=== PATIENT | male | born 1995 | race Two or more races ===

== ENCOUNTER 2022-06-08 13:16 | Emergency (ER) | payer MEDICAID, OTHER ==
[~2022-06-08] VITALS: Ht 175.3 cm; Wt 72.6 kg
[2022-06-08] MEDS ORDERED: KETOROLAC TROMETHAMINE INJ 60 MG/2 ML VIAL IM ONE (14:30)
[2022-06-08] MEDS ORDERED: KETOROLAC TROMETHAMINE INJ 30 MG/ML VIAL ONE (15:05)
[2022-06-09 00:35] VITALS: BP 120/67
== END 2022-06-09 00:50 | disposition short-term general hospital (02) ==
LOC: ER 13:29
DX: S92.322A Displaced fracture of second metatarsal bone, left foot, initial encounter for closed fracture (principal); S92.332A Displaced fracture of third metatarsal bone, left foot, initial encounter for closed fracture; S92.342A Displaced fracture of fourth metatarsal bone, left foot, initial encounter for closed fracture; Z20.822 Contact with and (suspected) exposure to COVID-19; V00.131A Fall from skateboard, initial encounter; Y93.51 Activity, roller skating (inline) and skateboarding; Y92.89 Other specified places as the place of occurrence of the external cause; Y99.8 Other external cause status
CPT/HCPCS: 99285; 29515; 73700; 87426; 96372; 73630; 87081; J1885; C9803

== ENCOUNTER 2023-02-23 12:44 | Emergency (ER) | payer MEDICAID ==
[~2023-02-23] VITALS: Ht 180.3 cm; Wt 77.1 kg
[2023-02-23] MEDS ORDERED: ONDANSETRON HCL/PF 4 MG/2 ML VIAL ONE (13:23)
[2023-02-23] MEDS ORDERED: FAMOTIDINE/PF INJ 20 MG/2 ML VIAL IV ONE ×2 (13:23→13:30)
[2023-02-23] MEDS ORDERED: MAG HYDROX/AL HYDROX/SIMETH 30 ML UDC ONE (13:23)
[2023-02-23] MEDS ORDERED: LIDOCAINE VISCOUS 2% UD 15 ML UDC ONE (13:23)
[2023-02-23] MEDS ORDERED: ONDANSETRON HCL/PF 4 MG/2 ML VIAL IVP ONE (13:30)
[2023-02-23] MEDS ORDERED: IV NS 0.9% 1,000 ML BAG IV ONE (13:30)
[2023-02-23] MEDS ORDERED: MAG HYDROX/AL HYDROX/SIMETH 30 ML UDC PO ONE (13:30)
[2023-02-23] MEDS ORDERED: LIDOCAINE VISCOUS 2% UD 15 ML UDC MM ONE (13:30)
[2023-02-23 13:48] LABS: BASOPHILS % (AUTO) 0.4 % (0.0-2.0); EOSINOPHILS # (AUTO) 0.1 K/uL (0.0-0.7); EOSINOPHILS % (AUTO) 1.3 % (0.0-6.0); HEMATOCRIT 45 % (39-51); HEMOGLOBIN 14.5 g/dL (13.5-17.5); LYMPHOCYTES # (AUTO) 3.1 K/uL (0.8-4.8); LYMPHOCYTES % (AUTO) 33.2 % (20.0-44.0); MEAN CORPUSCULAR HEMOGLOBIN 28 PG (26.0-33.0); MEAN CORPUSCULAR HGB CONC 32 g/dl (31.0-36.0); MEAN CORPUSCULAR VOLUME 86 fL (80-96); MONOCYTES # (AUTO) 0.5 K/uL (0.1-1.30); MONOCYTES % (AUTO) 5.7 % (2.0-12.0); NEUTROPHILS # (AUTO) 5.6 K/uL (1.8-8.9); NEUTROPHILS % (AUTO) 59.4 % (43.0-81.0); PLATELET COUNT (AUTO) 266 K/uL (150-450); RED BLOOD CELL COUNT(AUTO) 5.26 MIL/uL (4.5-6.0); RED CELL DISTRIBUTION WIDTH 15.1 % (11.5-15.0); WHITE BLOOD COUNT (AUTO) 9.4 K/uL (4.3-11.0)
[2023-02-23 13:57] LABS: CALCIUM, SERUM 8.6 mg/dL (8.5-10.1); CREATININE 0.8 mg/dL (0.6-1.3); POTASSIUM 3.9 mmol/L (3.5-5.1)
[2023-02-23 14:05] LABS: ALBUMIN 4.5 g/dL (3.4-5.0); BILIRUBIN,DIRECT 0.1 mg/dL (0.0-0.2); BILIRUBIN,TOTAL 0.4 mg/dL (0.2-1.0); TOTAL PROTEIN, SERUM 7.8 g/dL (6.4-8.2)
[2023-02-23] MEDS ORDERED: PANT40TA2 PO (14:31)
[2023-02-23 14:38] VITALS: BP 128/75; TEMP 98; O2SAT 100
== END 2023-02-23 14:39 | disposition home or self-care (01) ==
LOC: ER 12:44
DX: F10.129 Alcohol abuse with intoxication, unspecified (principal); R11.2 Nausea with vomiting, unspecified; Y90.9 Presence of alcohol in blood, level not specified
CPT/HCPCS: 99284; 96374; 71045; 96361; 96375; 85025; 80048; 83690; 80076; 36415; J3490; J2405; J7030

== ENCOUNTER 2024-05-24 11:36 | Emergency (ER) | payer MEDICAID, OTHER ==
[~2024-05-24] VITALS: Ht 177.8 cm; Wt 72.6 kg
[~2024-05-24 11:36] MED LIST: PANT40TA2 PO
[2024-05-24 12:01] VITALS: BP 129/86; O2SAT 99
[2024-05-24] MEDS ORDERED: ACETAMINOPHEN 325 MG TABLET ONE (12:45)
[2024-05-24] MEDS ORDERED: KETOROLAC TROMETHAMINE INJ 30 MG/ML VIAL ONE (12:45)
[2024-05-24 12:49] VITALS: TEMP 98.5
[2024-05-24] MEDS: ACETAMINOPHEN 325 MG TABLET PO ONE (12:49)
[2024-05-24] MEDS: KETOROLAC TROMETHAMINE INJ 30 MG/ML VIAL IM ONE (12:50)
[2024-05-24] MEDS ORDERED: PENICILLIN G BENZATHINE 2.4 MMU/4 ML ML IM ONE (15:09)
[2024-05-24] MEDS: PENICILLIN G BENZATHINE 2.4 MMU/4 ML ML IM ONE (15:30)
[2024-05-25] MEDS ORDERED: CLIN300C12 PO (20:35)
[2024-05-25] MEDS ORDERED: AMOX-430 PO (20:35)
== END 2024-05-24 15:25 | disposition home or self-care (01) ==
LOC: ER 12:15
DX: J02.9 Acute pharyngitis, unspecified (principal); R05.9 Cough, unspecified; R50.9 Fever, unspecified; Z20.822 Contact with and (suspected) exposure to COVID-19; Z79.899 Other long term (current) drug therapy
CPT/HCPCS: 99284; 87426; 96372 ×2; 87804 ×2; 87070; 87880; J0558; J1885; 86403-TC

== ENCOUNTER 2024-05-25 16:26 | Emergency (ER) | payer OTHER ==
[~2024-05-25] VITALS: Ht 177.8 cm; Wt 73.5 kg
[2024-05-25] MEDS ORDERED: methylPREDNISolone SOD SUCC 125 MG/2ML VIAL ONE (16:47)
[2024-05-25] MEDS ORDERED: dexaMETHasone SOD PHOSPHATE 1 ML ONE (16:47)
[2024-05-25] MEDS ORDERED: IOHEXOL-300 100 ML VIAL IV ONE (16:48)
[2024-05-25] MEDS ORDERED: IV NS 0.9% 250 ML IV ONE (16:48)
[2024-05-25] MEDS: dexaMETHasone SOD PHOSPHATE 10 MG/ML VIAL IV ONE (16:51)
[2024-05-25 16:58] LABS: BASOPHILS # (AUTO) 0.1 K/uL (0.0-0.2); BASOPHILS % (AUTO) 0.2 % (0.0-2.0); HEMATOCRIT 44 % (39-51); HEMOGLOBIN 14.4 g/dL (13.5-17.5); LYMPHOCYTES # (AUTO) 1.7 K/uL (0.8-4.8); LYMPHOCYTES % (AUTO) 7.1 % (20.0-44.0); MEAN CORPUSCULAR HEMOGLOBIN 28 PG (26.0-33.0); MEAN CORPUSCULAR HGB CONC 33 g/dl (31.0-36.0); MEAN CORPUSCULAR VOLUME 86 fL (80-96); MONOCYTES # (AUTO) 1.9 K/uL (0.1-1.30); MONOCYTES % (AUTO) 8.1 % (2.0-12.0); NEUTROPHILS # (AUTO) 20.2 K/uL (1.8-8.9); NEUTROPHILS % (AUTO) 84.6 % (43.0-81.0); PLATELET COUNT (AUTO) 193 K/uL (150-450); RED BLOOD CELL COUNT(AUTO) 5.14 MIL/uL (4.5-6.0); RED CELL DISTRIBUTION WIDTH 15.6 % (11.5-15.0); WHITE BLOOD COUNT (AUTO) 23.9 K/uL (4.3-11.0)
[2024-05-25 17:00] LABS: ERYTHROCYTE SEDIMENTATION RATE 20 MM/HR (0-15)
[2024-05-25] MEDS ORDERED: methylPREDNISolone SOD SUCC 125 MG/2ML VIAL IV ONE (17:00)
[2024-05-25 17:07] LABS: POTASSIUM 4.4 mmol/L (3.5-5.1)
[2024-05-25] MEDS: CEFTRIAXONE 2 G in IV D5W 100 ML IV STA (17:11)
[2024-05-25 17:26] LABS: C-REACTIVE PROTEIN 26.38 mg/dL (0.0-0.30)
[2024-05-25] MEDS ORDERED: LIDOCAINE 1%-EPI 1:100,000 20 ML VIAL ONE (18:49)
[2024-05-25] MEDS ORDERED: AMOX-430 PO (20:35)
[2024-05-25] MEDS ORDERED: CLIN300C12 PO (20:35)
[2024-05-25 21:20] VITALS: BP 126/79; TEMP 98.3; O2SAT 98
== END 2024-05-25 21:21 | disposition home or self-care (01) ==
LOC: ER 16:29
DX: J36 Peritonsillar abscess (principal); Z79.899 Other long term (current) drug therapy
CPT/HCPCS: 99291; 42700; 96365; 70491; 96375; 85025; 80048; 85652; 36415; 86140; J2919; J1100; J0696; J7060; J7050 ×2; J3490; Q9967